=== PATIENT | female | born 1950 | race Caucasian/White ===

== ENCOUNTER 2021-01-27 05:54 | Outpatient (RCR) | payer MEDICARE, OTHER ==
[~2021-01-27] VITALS: Ht 160 cm; Wt 77.3 kg
[2021-01-27] MEDS ORDERED: FAMO40TA72 PO (14:18)
[2021-01-27] MEDS ORDERED: CALC600T91 PO (14:18)
[2021-01-27] MEDS ORDERED: RT-ALBUINH IH (14:18)
[2021-01-27] MEDS ORDERED: ATOR40TA PO (14:18)
[2021-01-27] MEDS ORDERED: FLUT1BLS IH (14:18)
[2021-01-27] MEDS ORDERED: VITA-189 PO (14:18)
[2021-01-27] MEDS ORDERED: CETI10TA49 PO (14:18)
== END 2021-01-27 14:22 | disposition home or self-care (01) ==
LOC: PREOP 05:54 → EDSTATUS 13:30 → PREOP 14:22
PROVIDERS: ATTEND Podiatrist Foot & Ankle Surgery
DX: Z01.818 Encounter for other preprocedural examination (principal)

== ENCOUNTER 2021-02-02 07:35 | Day surgery (SDC) | payer MEDICARE, OTHER ==
[2021-02-02] VITALS (10 sets, daily range): BP systolic 137–164; BP diastolic 71–89
[~2021-02-02] VITALS: Ht 160 cm; Wt 77.3 kg
[~2021-02-02 07:35] MED LIST: ATOR40TA PO; CALC600T91 PO; CETI10TA49 PO; FAMO40TA72 PO; FLUT1BLS IH; RT-ALBUINH IH; VITA-189 PO
--- OUTSIDE RECORDS SUMMARY | 2021-02-02 07:39 | XMS REPORT ---
Author Author Yamila Garduno Organization [facility] Address [address] [place], [place] [id number] Care Team Providers Care Chemical Economist Name Role Phone eRhan Garduno PCP Rehan Garduno PreferredProvider Allergies and Adverse Reactions Name Reaction Notes NO KNOWN DRUG ALLERGIES Plan of Treatment Planned Activity Comments Planned Date Planned Time Plan/Goal CBC with Auto 01/01/2021 12:00 AM Comprehensive metabolic panel 01/01/2021 12:00 AM Lipid Profile 01/01/2021 12:00 AM EKG. 01/01/2021 12:00 AM Medications Active Name Start Date Estimated Completion Date SIG Co mments Pepcid 40 mg oral tablet 01/24/2020 take 1 tablet (40 mg) by oral route once daily at bedtime Atorvastatin Calcium 40 MG Oral Tablet 03/03/2020 05/27/2021 Take 1 tablet by mouth once daily Zyrtec 10 mg oral tablet 07/30/2020 take 1 tablet (10 mg) by oral route once daily albuterol sulfate 90 mcg/actuation inhalation HFA aerosol inhale r 09/01/2020 inhale 1 - 2 puffs (90 - 180 mcg) by inhalation route every 6 hours as needed Breo Ellipta 200-25 mcg/dose inhalation blister with device 09/01 inhale 1 puff by inhalation route once daily at the same time each day Name Start Date Expiration Date SIG Comments Prometrium 100 mg oral capsule 06/30/2009 08/24/2010 t martin 1 capsule by oral route QD Prometrium 100 mg oral capsule 11/11/2011 12/11/2011 T MARTIN ONE CAPSULE BY MOUTH EVERY DAY albuterol sulfate 90 mcg/actuation inhalation HFA aerosol in haler 12/15/2012 12/29/2012 inhale 2 puffs by inhalation route every 6 hours as ne eded for 14 days amoxicillin 875 mg oral tablet 12/15/2012 12/22/2012 t martin 1 tablet (875 mg) by oral route every 12 hours for 7 days promethazine-codeine 6.25-10 mg/5 mL oral syrup 12/05/2013 12/12/2013 take 5 milliliters by oral route every 6 hours as needed, not to exceed 30 mL in 24 hours for 7 days Zithromax Z-Tony 250 mg oral tablet 12/11/2013 12/18/2013 as dir ected Bystolic 5 mg oral tablet 03/26/2014 06/19/2015 take 1 tablet (5 mg) by oral route once daily for 90 days Claritin 10 mg oral tablet 03/03/2018 07/01/2018 take 1 tablet by oral route 2 times a day for 30 days Macrobid 100 mg oral capsule 12/01/2019 12/08/2019 jacqueline e 1 capsule (100 mg) by oral route every 12 hours with food for 7 days Pyridium 200 mg oral tablet 12/01/2019 12/03/2019 take 1 tablet (200 mg) by oral route 3 times per day after meals for 2 days as needed Tessalon Perles 100 mg oral capsule 01/24/2020 take 2 capsules (200 mg) by oral route 3 times per day Symbicort 160-4.5 mcg/actuation inhalation HFA aerosol inhal er 02/06/2020 01/31/2021 inhale 2 puffs by inhalation route 2 daron es per day in the morning and evening for 30 days Carafate oral tablet 1 gram 10/14/2020 11/13/2020 take 1 tablet (1 gram) by oral route 2 times per day on an empty stomach for 30 days azithromycin oral tablet 500 mg 10/14/2020 10/19/2020 take 1 tablet (500 mg) by oral route once daily for 5 days Discontinued Name Start Date Discontinued Date SIG Comments Premarin 06/11/2009 dose unknown by pt Premarin vaginal cream 10/26/2010 using 5 to 7 days weekly Flexeril 10 mg oral tablet 04/06/2010 10/26/2010 take 1 tablet (10 mg) by oral route 2 times per day Estrace 0.01 % (0.1 mg/gram) vaginal cream 04/08/201104/06 apply 1 applicatorful by vaginal route twice a week Lanoxin 125 mcg oral tablet 03/07/2017 take 1 tablet (125 mcg) by oral route once daily Replaced/Retired Drug 400 mg oral tablet 08/19/19 18 take 1 tablet by oral route daily Medrol (Tony) 4 mg oral tablets,dose pack 03/07/2017 take as directed atorvastatin 40 mg oral tablet 04/28/2015 TAKE ONE T ABLET BY MOUTH ONCE DAILY atorvastatin 40 mg oral tablet 08/17/2016 03/07/2017 T MARTIN ONE TABLET BY MOUTH ONCE DAILY Claritin 10 mg oral tablet 08/18/2017 take 1 tablet (10 mg) by oral route once daily Premarin 0.625 mg/gram vaginal cream 03/07/2017 08/18/2017 insert one-fourth applicatorful (0.5 gram) by vaginal route twice weekly baclofen 10 mg oral tablet 04/13/2017 08/18/2017 take 1 tablet by oral route 2 times a day fluticasone 50 mcg/actuation nasal spray,suspension 08/18/2017 03/03/2018 spray 1 spray (50 mcg) in each nostril by intranasal route once daily Medrol (Tony) 4 mg oral tablets,dose pack 09/02/2017 03/03/2018 take as directed prednisolone acetate 1 % ophthalmic (eye) drops,suspension 201703/03/2018 instill 2 drops into affected eye(s) by ophthalmic route 2 times per day Zantac 150 mg oral tablet 03/03/2018 01/29/2019 take 1 tablet (150 mg) by oral route 2 times per day for 30 days ranitidine HCl 150 mg oral tablet 07/07/2018 02/19/2019 TAKE 1 TABLET BY MOUTH TWICE DAILY Concerned with it being linked to cancer atorvastatin 40 mg oral tablet 01/29/2019 04/24/2020 T MARTIN 1 TABLET BY MOUTH ONCE DAILY fluticasone propionate 50 mcg/actuation nasal spray,suspension 12/01/2019 spray 1 spray (50 mcg) in each nostril by intranasal route once daily Protonix 40 mg oral tablet,delayed release (DR/EC) 12/01/2019 take 1 tablet (40 mg) by oral route once daily for 8 weeks pantoprazole 40 mg oral tablet,delayed release (DR/EC) 04/23/2019 12/01/2019 TAKE 1 TABLET BY MOUTH ONCE DAILY Problem List Description Status Onset Hyperlipidemia, unspecified Active 08/27/2011 Vital Signs Date Time BP-Sys(mm[Hg] BP-Haydee(mm[Hg]) HR(bpm) RR(rpm) Temp WT HT HC BMI BSA BMI Percentile O2 Sat(%) 01/01/2021 8:36:00 AM 138 mm[Hg] 76 mm[Hg] 56 {beats}/min 18 rpm 97.5 F 174.375 lbs 63 in 30.8888 kg/m2 1.875 m2 98 % 10/14/2020 11:19:00 AM 130 mm[Hg] 80 mm[Hg] 72 {beats}/min 18 rpm 97.7 F 174.125 lbs 63 in 30.84 kg/m2 1.87 m2 98 % 09/01/2020 8:56:00 AM 152 mm[Hg] 86 mm[Hg] 72 {beats}/min 18 rpm 18 0 lbs 63 in 31.8852 kg/m2 1.905 m2 98 % 05/19/2020 7:51:00 PM 67 {beats}/min 18 rpm 98.4 F 96 % 04/24/2020 9:11:00 AM 132 mm[Hg] 74 mm[Hg] 88 {beats}/min 98.1 F 17 0 lbs 63 in 30.1138 kg/m2 1.8514 m2 99 % 02/28/2020 2:45:00 PM 126 mm[Hg] 80 mm[Hg] 53 {beats}/min 16 rpm 17 4 lbs 63 in 30.82 kg/m2 1.87 m2 98 % 01/24/2020 3:53:00 PM 140 mm[Hg] 60 mm[Hg] 74 {beats}/min 16 rpm 96.6 F 98 % 12/01/2019 9:26:00 AM 132 mm[Hg] 70 mm[Hg] 64 {beats}/min 18 rpm 97.9 F 168.125 lbs 63 in 29.7817 kg/m2 1.8411 m2 97 % 03/06/2019 2:27:00 PM 118 mm[Hg] 70 mm[Hg] 67 {beats}/min 18 rpm 97.8 F 171.375 lbs 63 in 30.36 kg/m2 1.86 m2 97 % 02/19/2019 8:46:00 AM 120 mm[Hg] 72 mm[Hg] 59 {beats}/min 22 rpm 97.6 F 170.187 lbs 63 in 30.1471 kg/m2 1.8524 m2 98 % 01/29/2019 3:25:00 PM 130 mm[Hg] 80 mm[Hg] 71 {beats}/min 18 rpm 97.9 F 170.75 lbs 63 in 30.25 kg/m2 1.86 m2 95 % 03/03/2018 8:47:00 AM 118 mm[Hg] 72 mm[Hg] 55 {beats}/min 18 rpm 97.8 F 164.125 lbs 63 in 29.0731 kg/m2 1.8191 m2 98 % 09/02/2017 9:41:00 AM 120 mm[Hg] 68 mm[Hg] 61 {beats}/min 18 rpm 98.1 F 162 lbs 63 in 28.70 kg/m2 1.81 m2 98 % 08/18/2017 3:33:00 PM 124 mm[Hg] 80 mm[Hg] 52 {beats}/min 16 rpm 97.3 F 164 lbs 63 in 29.051 kg/m2 1.8184 m2 99 % 04/13/2017 2:18:00 PM 130 mm[Hg] 80 mm[Hg] 66 {beats}/min 16 rpm 97.1 F 161 lbs 63 in 28.52 kg/m2 1.80 m2 99 % 03/07/2017 9:45:00 AM 132 mm[Hg] 72 mm[Hg] 64 {beats}/min 98 F 1 61 lbs 63 in 28.5196 kg/m2 1.8017 m2 12/12/2014 5:15:00 PM 140 mm[Hg] 72 mm[Hg] 43 {beats}/min 16 rpm 97.6 F 63 in 98 % 03/26/2014 8:33:00 AM 128 mm[Hg] 78 mm[Hg] 48 {beats}/min 18 rpm 98.1 F 154.5 lbs 63 in 27.3682 kg/m2 1.765 m2 98 % 12/15/2012 6:44:00 PM 142 mm[Hg] 82 mm[Hg] 88 {beats}/min 20 rpm 100.8 F 148 lbs 63 in 26.22 kg/m2 1.73 m2 99 % 11/08/2012 2:31:00 PM 139 mm[Hg] 75 mm[Hg] 61 {beats}/min 98 F 10/23/2012 3:28:00 PM 144 mm[Hg] 75 mm[Hg] 61 {beats}/min 98 F 146.5 lbs 62.5 in 26.3679 kg/m2 1.7118 m2 04/06/2012 2:41:00 PM 143 mm[Hg] 75 mm[Hg] 67 {beats}/min 98.2 F 167.5 lbs 62.5 in 30.15 kg/m2 1.83 m2 08/27/2011 8:52:00 AM 130 mm[Hg] 80 mm[Hg] 60 {beats}/min 20 rpm 97.8 F 171 lbs 10/26/2010 11:28:00 AM 129 mm[Hg] 80 mm[Hg] 55 {beats}/min 98.6 F 173 lbs 62.5 in 31.1375 kg/m2 1.8602 m2 04/06/2010 10:09:00 AM 144 mm[Hg] 88 mm[Hg] 60 {beats}/min 20 rpm 100 F 169 lbs 06/27/2009 10:02:00 AM 132 mm[Hg] 75 mm[Hg] 51 {beats}/min 06/12/2009 8:28:00 AM 130 mm[Hg] 82 mm[Hg] 64 {beats}/min 20 rpm 06/11/2009 9:56:00 AM 145 mm[Hg] 75 mm[Hg] 60 {beats}/min 20 rpm 174. 5 lbs Social History Name Description Comments No Alcohol Use Tobacco Never smoker 12/01/2019 - History of Procedures Date Ordered Description Order Status 08/27/2011 12:00 AM COMPLETE CBC W/AUTO DIFF WBC Reviewed 08/27/2011 12:00 AM COMPREHEN METABOLIC PANEL Reviewed 08/27/2011 12:00 AM LIPID PANEL Reviewed 08/27/2011 12:00 AM ASSAY THYROID STIM HORMONE Reviewed 08/27/2011 12:00 AM VITAMIN B-12 Reviewed 10/12/2016 12:00 AM TDAP VACCINE 7 YRS/> IM Reviewed 03/07/2017 12:00 AM Screening mammography, bilateral Reviewe d 03/07/2017 12:00 AM CYTOPATH C/V THIN LAYER Reviewed 03/07/2017 12:00 AM Screening mammography, bilateral Reviewe d 05/19/2012 12:00 AM MAMMOGRAM SCREENING Reviewed 04/06/2012 12:00 AM CYTOPATH TBS C/V MANUAL Reviewed 04/06/2012 12:00 AM SPECIMEN HANDLING OFFICE-LAB Reviewed 10/23/2012 12:00 AM ECHO EXAMINATION PROCEDURE Reviewed 10/23/2012 12:00 AM US EXAM PELVIC COMPLETE Reviewed 11/08/2012 12:00 AM BIOPSY OF UTERUS LINING Reviewed 03/03/2018 12:00 AM FLU VAC NO PRSV 4 BENY 3 YRS+ Reviewed 03/03/2018 12:00 AM PNEUMOCOCCAL VACC 13 BENY IM Reviewed 01/29/2019 12:00 AM Decadron 8mg Injection Reviewed 01/29/2019 12:00 AM Depo-Medrol 80mg Injection Reviewed 01/29/2019 12:00 AM THER/PROPH/DIAG INJ SC/IM Reviewed 01/29/2019 12:00 AM Rocephin 1 gram Injection Reviewed 02/19/2019 12:00 AM BREATHING CAPACITY TEST Returned 02/26/2019 12:00 AM METABOLIC PANEL TOTAL CA Returned 02/19/2019 12:[address] THORAX W/DYE Returned 03/06/2019 12:00 AM IM ADM PRQ ID SUBQ/IM NJXS 1 VACCINE Rev iewed 03/06/2019 12:00 AM PNEUMOCOCCAL VACC 23 BENY IM Reviewed 12/01/2019 9:41 AM URINALYSIS AUTO W/O SCOPE Reviewed 12/01/2019 12:00 AM URINE BACTERIA CULTURE Returned 12/22/2009 12:00 AM COMPLETE CBC W/AUTO DIFF WBC Reviewed 12/22/2009 12:00 AM COMPREHEN METABOLIC PANEL Reviewed 12/22/2009 12:00 AM LIPID PANEL Reviewed 05/19/2020 12:00 AM COVID-19 Testing Reviewed 10/14/2020 12:00 AM Decadron 4mg Injection Reviewed 10/14/2020 12:00 AM Depo-Medrol 40mg Injection Reviewed 10/14/2020 12:00 AM THER/PROPH/DIAG INJ SC/IM Reviewed 04/06/2010 12:00 AM URINALYSIS NONAUTO W/SCOPE Reviewed 04/15/2010 12:00 AM ROUTINE VENIPUNCTURE Reviewed 04/15/2010 12:00 AM LIPID PANEL Reviewed 06/11/2009 12:00 AM ASSAY THYROID STIM HORMONE Reviewed 06/11/2009 12:00 AM CYTOPATH C/V THIN LAYER Reviewed 06/11/2009 12:00 AM DXA BONE DENSITY AXIAL Reviewed 06/11/2009 12:00 AM MAMMOGRAM SCREENING Reviewed 06/11/2009 12:00 AM US EXAM PELVIC COMPLETE Reviewed 06/13/2009 12:00 AM BIOPSY OF UTERUS LINING Reviewed 10/26/2010 12:00 AM CYTOPATH TBS C/V MANUAL Reviewed 10/26/2010 12:00 AM SPECIMEN HANDLING OFFICE-LAB Reviewed 10/26/2010 12:00 AM MAMMOGRAM SCREENING Reviewed 12/12/2014 12:00 AM THER/PROPH/DIAG INJ SC/IM Reviewed 12/12/2014 12:00 AM Decadron, Per 1 Mg [facility]# [address]-03 Re viewed 12/12/2014 12:00 AM Depo-Medrol 40mg Reviewed Results Summary Date and Description Results 12/22/2009 10:08 AM TRIGLYCERIDES 156.0 mg/dLCHO LESTEROL 288.0 mg/dLHDL 47.0 mg/dLTOT CHOL/HDL 6.1 LDL (CALC) 210.0 mg/dLWBC 5.5 RBC 4.61 HGB 14.70 g/dLHCT 42.60 %MCV 92.0 fLMCH 31.90 pgMCHC 34.50 g/dLRDW SD 45 RDW CV 13.30 %MPV 9.90 fLPLT 196 NRBC# 0.00 NRBC% 0.0 %NEUT 55.0 %%LYMP 37.70 %%MONO 6.0 %%EOS 1.10 %%BASO 0.20 %#NEUT 3.02 #LYMP 2.07 #MONO 0.33 #EOS 0.06 #BASO 0.01 MANUAL DIFF NOT IND GLUCOSE 97.0 mg/dLSODIUM 140.0 mmol/LPOTASSIUM 4.50 mmol/LCHLORIDE 106.0 mmol/LCO2 27.0 mmol/LBUN 16.0 mg/dLCREATININE 1.0 mg/dLSGOT/AST 19.0 IU/LSGPT/ALT 17.0 IU/LALK PHOS 77.0 IU/LTOTAL PROTEIN 6.50 g/dLALBUMIN 4.10 g/dLTOTAL BILI 0.70 mg/dLCALCIUM 9.20 mg/dLAGE 59 GFR NonAA 57 GFR AA 69 eGFR 57 eGFR AA* >60 04/06/2010 11:23 AM COLOR YELLOW APPEARANCE KAYKAY R SPEC GRAV <=1.005 pH 7.0 PROTEIN NEGATIVE GLUCOSE NEGATIVE KETONE NEGATIVE BILIRUBIN NEGATIVE BLOOD NEGATIVE NITRITE NEGATIVE LEUK SCREEN NEGATIVE WBC/HPF RARE RBC/HPF RARE CASTS/LPF NEGATIVE CRYSTALS NEGATIVE MUCOUS THRDS NEGATIVE BACTERIA NEGATIVE EPITH CELLS FEW SQUAMOUS TRICHOMONAS NEGATIVE YEAST NEGATIVE CULT SET UP? NO 04/15/2010 11:32 AM TRIGLYCERIDES 66.0 mg/dLCHOL ESTEROL 137.0 mg/dLHDL 48.0 mg/dLTOT CHOL/HDL 2.9 LDL (CALC) 76.0 mg/dL 12/01/2019 9:41 AM Clarity Ur clear Urine-Color lt yellow Glucose Ur-sCnc neg Bilirub Ur Ql neg Ketones Ur Ql Strip neg Sp Gr Ur Qn <=1.005 Hgb Ur Ql Strip Large pH Ur-LsCnc 7.5 Prot Ur Ql Strip neg Urobilinogen Ur-mCnc 0.2 E.U/dL Nitrite Ur Ql Strip neg WBC # Ur Small 05/19/2020 2:19 PM [id number] NOT DETECTED History Of Immunizations Name Date Admin Mfg Name Mfg Code Trade Name Lot# Route Inj Vis Given Vis Pub CVX Tdap 10/12/2016 GlaxoSmithPeer39ine SKB BOOSTRIX [id number] Intramuscular Left Deltoid 10/12/2016 07/16/2014 115 Influenza 03/03/2018 sanofi pasteur PMC FLUZONE-HIGH DOSE [id number] In tramuscular Left Deltoid 03/03/2018 05/23/2021 135 Pneumococcal 03/03/2018 Yrvey-Kbpwjq-Zrigafj-Praxis WAL PREVNAR 13 [id number] Intramuscular Right Deltoid 03/03/2018 05/23/2021 133 Pneumococcal 03/06/2019 Merck & Co., Inc. MSD PNEUMOVAX 23 [id number] Intramuscular Left Deltoid 03/06/2019 05/23/2021 33 Covid-19 08/06/2020 Moderna [employer] MOD Moderna COVID-19 Vaccin e [id number] Intramuscular Left Arm 08/06/2020 04/22/2020 207 History of Past Illness Name Date of Onset Comments Pap Smear Jun 11 2009 9:57AM Routine gynecological examination Jun 11 2009 9:57AM Atrophic Vaginitis, Postmenopausal Jun 11 2009 9:57AM Hormone Replacement Therapy Jun 11 2009 9:57AM Menopausal Syndrome Jun 11 2009 9:57AM Postmenopausal Atrophic Vaginitis Jun 11 2009 9:57AM Uteromegaly Jun 11 2009 9:57AM Gynecological Exam Jun 11 2009 9:57AM Gynecological disorder Jun 11 2009 9:57AM Other personal history presenting hazard s to health; other specified personal history presenting hazards to health; other Jun 11 2009 4:58PM Postmenopausal Bleeding Jun 12 2009 8:24AM Postmenopausal Bleeding Jun 15 2009 11:36PM Preoperative Examination Jun 15 2009 11:36PM Hypercholesterolemia on rx Postmenopausal Atrophic Vaginitis Jun 27 2009 10:02AM Postmenopausal Bleeding Jun 27 2009 10:02AM Hyperlipidemia, unspecified 08/27/2011 General Medical Exam, Adult Dec 22 2009 9:50AM Low Back Pain Apr 06 2010 10:11AM Fever Apr 06 2010 10:11AM Hyperlipidemia Apr 15 2010 11:23AM Routine gynecological examination Oct 26 2010 11:32AM Menopausal Syndrome Oct 26 2010 11:32AM Inappropriate sinus tachycardia Hyperlipidemia, unspecified Aug 27 2011 8:55AM Fatigue Aug 27 2011 8:55AM Dizziness Aug 27 2011 8:55AM Screening Mammogram Apr 06 2012 2:47PM Routine gynecological examination Apr 06 2012 2:43PM Menopausal Syndrome Apr 06 2012 2:43PM Postmenopausal Bleeding Oct 23 2012 3:30PM Urgency of urination Oct 23 2012 3:30PM Postmenopausal Bleeding Oct 23 2012 3:47PM Postmenopausal Bleeding Nov 08 2012 2:31PM Postmenopausal Bleeding Nov 08 2012 4:11PM Bronchitis Dec 15 2012 6:48PM Hyperlipidemia, unspecified Mar 26 2014 8:39AM Poison kayode Dec 12 2014 5:18PM Eustachian tube dysfunction, bilateral Dec 12 2014 5:18PM Td Oct 12 2016 3:09PM Encounter for screening mammogram for breast cancer Feb 23 11:18AM Encntr for hourly sign language interpreter exam (general) (routine) w abnormal findings Mar 07 2017 9:47AM Atrophic vaginitis Mar 07 2017 9:47AM Acute midline thoracic back pain Apr 13 2017 2:19PM Acute midline low back pain without sciatica Apr 13 2017 2: 19PM Allergic rhinitis Aug 18 2017 3:34PM Acute conjunctivitis of right eye, unspecified acute c onjunctivitis type Sep 02 2017 9:44AM Seasonal allergic rhinitis due to pollen Sep 02 2017 9:44AM Cough Mar 03 2018 8:50AM Sinusitis Jan 29 2019 3:27PM Cough Jan 29 2019 3:27PM Dyspnea Feb 19 2019 8:50AM Cough Feb 19 2019 8:50AM Cough Feb 19 2019 3:39PM Dyspnea Feb 19 2019 3:39PM Blood tests prior to treatment or procedure Feb 26 2019 2:1 7PM Pneumococcus Mar 07 2019 7:33AM Esophageal Reflux Mar 06 2019 2:27PM Cough Mar 06 2019 2:27PM Hematuria Dec 01 2019 9:28AM Acute cystitis with hematuria Dec 01 2019 9:28AM Cough Jan 24 2020 3:57PM Encounter for laboratory testing for COVID-19 virus May 19 020 12:52PM Cough May 19 2020 12:52PM Congestion of respiratory tract May 19 2020 12:52PM Runny nose May 19 2020 12:52PM Chronic cough Sep 01 2020 9:24AM Allergic rhinitis Sep 01 2020 9:24AM Reflux esophagitis Oct 14 2020 11:20AM Preop examination Jan 01 2021 8:57AM Hyperlipidemia, unspecified Jan 01 2021 8:39AM Bunion of great toe of left foot Jan 01 2021 8:39AM Payers Insurance Name Company Name Plan Name Plan Number Policy Number [place] Group Number Start Date Medicare Part B Medicare Of [place] [id number] N/A Cigna Medicare Supplement Cigna [id number] N/A [id number] N/ A Medicare RHC Medicare RHC [id number] 2019 Medicare Part A Medicare - Lab/Xray [id number] Wednesday, February 20, 2019 History of Encounters Visit Date Visit Type Provider 01/01/2021 Office visit Rehan Garduno MD 10/14/2020 Office visit Tracy Ji APR N 09/01/[address] Cruz Mandel DO 05/19/2020 Office visit Alicia CALVIN RN 04/24/[address] Cruz Mandel DO 02/28/[address] Cruz Mandel DO 01/24/[address] Cruz Mandel DO 12/01/2019 Office visit Alicia CALVIN RN 03/06/2019 Office visit Rehan Garduno MD 02/19/2019 Office visit Rehan Garduno MD 01/29/2019 Office visit Rehan Garduno MD 03/03/2018 Office visit Rehan Garduno MD 09/02/2017 Office visit Hanna Cifuentes [employer]CHOOL TUTOR 08/18/2017 Office visit Rehan Garduno MD 04/13/2017 Office visit Kevyn Jordan APR N 03/07/[address] Gricelda read MD 10/12/2016 Nurse visit Hanna Cifuentes [employer] TUTOR 12/12/2014 Office visit Kevyn Jordan APR N 03/26/2014 Office visit Rehan Garduno MD 12/15/2012 Office visit Buck Tristan PA-C 11/08/2012 Office visit Bernardino Mandel MD 10/23/2012 Office visit Bernardino Mandel MD 04/06/2012 Office visit Bernardino Mandel MD 08/27/2011 Office visit Rehan Garduno MD 10/26/2010 Office visit Bernardino Mandel MD 04/06/2010 Office visit Rehan Garduno MD 06/27/2009 Office visit Sharon Paul MD 06/17/2009 [facility] Sharon Paul MD 06/16/2009 Laboratory Larry Velazquez MD 06/12/2009 Office visit Sharon Paul MD 06/11/2009 Office visit Sharon Paul MD
--- OUTSIDE RECORDS SUMMARY | 2021-02-02 07:39 | XMS REPORT ---
Author Author Yamila Garduno Organization [facility] Address [address] [place], [place] [id number] Care Team Providers Care Line Prep Cook Name Role Phone Rehan Garduno PCP Rehan Garduno PreferredProvider Allergies and Adverse Reactions Name Reaction Notes NO KNOWN DRUG ALLERGIES Plan of Treatment Planned Activity Comments Planned Date Planned Time Plan/Goal EKG. 01/01/2021 12:00 AM Medications Active Name [...] daily at the same time each day Calcium 500 With D 500 mg(1,250mg) -400 unit oral tablet take 1 tablet by oral route once Name Start Date Expiration Date SIG Comments [...] TAKE 1 TABLET BY MOUTH ONCE DAILY Vitamin D3 oral 01/23/2021 take 1 by oral route onc e Problem List Description Status Onset Hyperlipidemia, unspecified Active 08/27/2011 Vital Signs Date Time BP-Sys(mm[Hg] BP-Haydee(mm[Hg]) HR(bpm) RR(rpm) Temp WT HT HC BMI BSA BMI Percentile O2 Sat(%) 01/23/2021 9:30:00 AM 114 mm[Hg] 70 mm[Hg] 62 {beats}/min 18 rpm 97.7 F 172.5 lbs 63 in 30.5567 kg/m2 1.8649 m2 97 % 01/01/2021 8:36:00 AM 138 mm[Hg] 76 mm[Hg] 56 {beats}/min 18 rpm 97.5 F 174.375 lbs 63 in 30.89 kg/m2 1.88 m2 98 % 10/14/2020 11:19:00 AM 130 mm[Hg] 80 mm[Hg] 72 {beats}/min 18 rpm 97.7 F 174.125 lbs 63 in 30.8445 kg/m2 1.8737 m2 98 % 09/01/2020 8:56:00 AM 152 mm[Hg] 86 mm[Hg] 72 {beats}/min 18 rpm 18 0 lbs 63 in 31.89 kg/m2 1.91 m2 98 % 05/19/2020 7:51:00 PM 67 [...] 10/14/2020 12:00 AM THER/PROPH/DIAG INJ SC/IM Reviewed 01/01/2021 12:00 AM COMPLETE CBC W/AUTO DIFF WBC Returned 01/01/2021 12:00 AM COMPREHEN METABOLIC PANEL Returned 01/01/2021 12:00 AM LIPID PANEL Returned 04/06/2010 12:00 AM URINALYSIS NONAUTO W/SCOPE Reviewed [...] 12/12/2014 12:00 AM Decadron, Per 1 Mg [facility]# [id number] Re viewed 12/12/2014 12:00 AM Depo-Medrol 40mg [...] WBC # Ur Small 05/19/2020 2:19 PM [id number] NOT DETECTED History Of Immunizations Name Date Admin Mfg Name Mfg Code Trade Name Lot# Route Inj Vis Given Vis Pub CVX Tdap 10/12/2016 GlaxoSmithKline SKB BOOSTRIX [id number] Intramuscular Left Deltoid 10/12/2016 07/16/2014 115 Influenza 03/03/2018 sanofi pasteur PMC FLUZONE-HIGH DOSE [id number] In tramuscular Left Deltoid 03/03/2018 05/23/2021 135 Pneumococcal 03/03/2018 Pwkhw-Mrwgzt-Wgxjhlj-Praxis WAL PREVNAR 13 [id number] Intramuscular Right Deltoid 03/03/2018 05/23/2021 133 Pneumococcal 03/06/2019 Merck & Co., Inc. MSD PNEUMOVAX 23 [id number] Intramuscular Left Deltoid 03/06/2019 05/23/2021 33 Covid-19 08/06/2020 Moderna [employer]. MOD Moderna COVID-19 Vaccin e [id number] Intramuscular Left Arm 08/06/2020 04/22/2020 207 History [...] breast cancer Feb 23 11:18AM Encntr for control inspector exam (general) (routine) w abnormal findings Mar [...] laboratory testing for COVID-19 virus May 19 12:52PM Cough May 19 2020 12:52PM Congestion of respiratory tract May 19 2020 12:52PM Runny nose May 19 2020 12:52PM Chronic cough Sep 01 2020 9:24AM Allergic rhinitis Sep 01 2020 9:24AM Reflux esophagitis Oct 14 2020 11:20AM Preop examination Jan 01 2021 8:57AM Hyperlipidemia, unspecified Jan 01 2021 8:39AM Bunion of great toe of left foot Jan 01 2021 8:39AM Hyperlipemia Jan 01 2021 8:57AM Bunion of great toe of left foot Jan 23 2021 9:28AM Preop examination Jan 23 2021 9:28AM Payers Insurance Name Company Name Plan Name Plan Number Policy Number [place] Group Number Start Date Medicare [facility] Medicare [facility] [id number] 2019 Cigna Medicare Supplement Cigna [id number] N/A Medicare Part B Medicare Of [place] [id number] N/A Medicare Part A Medicare - Lab/Xray [id number] Wednesday, February 20, 2019 BCBS [facility] [id number] N/ A History of Encounters Visit Date Visit Type Provider 01/23/2021 Office visit Rehan Garduno MD 01/01/2021 Office visit Rehan Garduno MD 10/14/2020 [...] Garduno MD 09/02/2017 Office visit Hanna Cifuentes CIRCULAR [employer]W [employer]GE FUSER 08/18/2017 Office visit Rehan Garduno MD 04/13/2017 Office visit Kevyn Jordan APR N 03/07/[address] Gricelda read MD 10/12/2016 Nurse visit Hanna Cifuentes CIRCULAR SAW EDGE FUSER 12/12/2014 Office visit Kevyn Jordan APR N 03/26/2014 Office visit Rehan Garduno MD 12/15/2012 Office visit Buck Tristan PA-C 11/08/2012 Office visit Bernardino Mandel MD 10/23/2012 Office visit Bernardino Mandel MD 04/06/2012 Office visit Bernardino Mandel MD 08/27/2011 Office visit Rehan Garduno MD 10/26/2010 Office visit Bernardino Mandel MD 04/06/2010 Office visit Rehan Garduno MD 06/27/2009 Office visit Sharon Paul MD 06/17/2009 Hospital Sharon Paul MD 06/16/2009 Laboratory Larry Velazquez MD 06/12/2009 Office visit Sharon Paul MD 06/11/2009 Office visit Sharon Paul MD
--- OUTSIDE RECORDS SUMMARY | 2021-02-02 07:39 | XMS REPORT ---
Author Author Yamila Garduno Organization [facility] oup Address [address] [place], [place] [address] Care Team Providers Care Wrister Name Role Phone Rehan Garduno PCP Rehan [...] 12/12/2014 12:00 AM Decadron, Per 1 Mg [facility]# [address]-97 Re viewed 12/12/2014 12:00 AM Depo-Medrol 40mg [...] WBC # Ur Small 05/19/2020 2:19 PM [id number] NOT DETECTED History Of Immunizations Name Date Admin Mfg Name Mfg Code Trade Name Lot# Route Inj Vis Given Vis Pub CVX Tdap 10/12/2016 GlaxoSmithVikiine SKB BOOSTRIX [id number] Intramuscular Left Deltoid 10/12/2016 07/16/2014 115 Influenza 03/03/2018 sanofi pasteur PMC FLUZONE-HIGH DOSE [id number] In tramuscular Left Deltoid 03/03/2018 05/23/2021 135 Pneumococcal 03/03/2018 Nzzep-Qvgbxu-Rcofokh-Praxis WAL PREVNAR 13 [id number] Intramuscular Right Deltoid 03/03/2018 05/23/2021 133 Pneumococcal 03/06/2019 Merck & Co., Inc. MSD PNEUMOVAX 23 [id number] Intramuscular Left Deltoid 03/06/2019 05/23/2021 33 Covid-19 08/06/2020 Moderna SMTDP [employer], Inc. 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 Mar [...] 2021 8:39AM Hyperlipemia Jan 01 2021 8:57AM Payers Insurance Name Company Name Plan Name Plan Number Policy Number [place] Group Number Start Date Medicare Part B Medicare Of [place] [id number] N/A Cigna Medicare Supplement Cigna [id number] N/A BCBS [facility] [id number] N/ A Medicare RHC Medicare RHC [id number] 2019 Medicare Part A Medicare - Lab/Xray [id number] Wednesday, February 20, 2019 History of Encounters [...] Garduno MD 09/02/2017 Office visit Hanna Cifuentes APRN 08/18/2017 Office visit Rehan Garduno MD 04/13/2017 Office visit Kevyn Jordan APR N 03/07/[address] Gricelda read MD 10/12/2016 Nurse visit Hanna Cifuentes DRYING MACHINE BACK TENDER 12/12/2014 Office visit Kevyn Jordan APR N 03/26/2014 Office visit Rehan Garduno MD 12/15/2012 Office visit Buck MAHANC 11/08/2012 Office visit Bernardino Mandel MD 10/23/2012 Office visit Bernardino Mandel MD 04/06/2012 Office visit Bernardino Mandel MD 08/27/2011 Office visit Rehan Garduno MD 10/26/2010 Office visit Bernardino Mandel MD 04/06/2010 Office visit Rehan Garduno MD 06/27/2009 Office visit Sharon Paul MD 06/17/2009 [facility] Sharon Paul MD 06/16/2009 Laboratory Larry Velazquez MD 06/12/2009 Office visit Sharon Paul MD 06/11/2009 Office visit Sharon Paul MD
--- OUTSIDE RECORDS SUMMARY | 2021-02-02 07:39 | XMS REPORT ---
Author Author Yamila Garduno Organization [facility] Address [address] [place], [place] [id number] Care Team Providers Care Elevator Constructor Helper Name Role Phone Rehan Garduno PCP Rehan [...] Replaced/Retired Drug 400 mg oral tablet 08/19/19 take 1 tablet by oral route daily [...] 12/12/2014 12:00 AM Decadron, Per 1 Mg [facility]# [address]-80 Re viewed 12/12/2014 12:00 AM Depo-Medrol 40mg [...] WBC # Ur Small 05/19/2020 2:19 PM [id number] NOT DETECTED History Of Immunizations Name Date Admin Mfg Name Mfg Code Trade Name Lot# Route Inj Vis Given Vis Pub CVX Tdap 10/12/2016 GlaxoSmithKline SKB BOOSTRIX [id number] Intramuscular Left Deltoid 10/12/2016 07/16/2014 115 Influenza 03/03/2018 sanofi pasteur PMC FLUZONE-HIGH DOSE [id number] In tramuscular Left Deltoid 03/03/2018 05/23/2021 135 Pneumococcal 03/03/2018 Ererf-Zivczv-Glvesxm-Praxis WAL PREVNAR 13 [id number] Intramuscular Right Deltoid 03/03/2018 05/23/2021 133 Pneumococcal 03/06/2019 Merck & Co., Inc. MSD PNEUMOVAX 23 [id number] Intramuscular Left Deltoid 03/06/2019 05/23/2021 33 Covid-19 08/06/2020 Moderna [employer] Inc. 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 [id number] N/ A History of Encounters Visit Date [...] visit Rehan Garduno MD 04/13/2017 Office visit Kevny Jordan APR N 03/07/[address] Gricelda read MD 10/12/2016 Nurse visit Hanna Cifuentes ROCK WORKER 12/12/2014 Office visit Kevyn Jordan APR N 03/26/2014 Office visit Rehan Garduno MD 12/15/2012 Office visit Buck MAHANC 11/08/2012 Office visit Bernardino Mandel MD 10/23/2012 Office visit Bernardino Mandel MD 04/06/2012 Office visit Bernardino Mandel MD 08/27/2011 Office visit Rehan Garduno MD 10/26/2010 Office visit Bernardino Mandel MD 04/06/2010 Office visit Rehan Garduno MD 06/27/2009 Office visit Sharon Paul MD 06/17/2009 [facility] Sharon Paul MD 06/16/2009 Laboratory Larry Velazquez MD 06/12/2009 Office visit Sharon Paul MD 06/11/2009 Office visit Sharon Paul MD
--- OUTSIDE RECORDS SUMMARY | 2021-02-02 07:39 | XMS REPORT ---
Author Author Yamila Garduno Organization [facility] Address [address] [place], [place] [id number] Care Team Providers Care Clinical Systems Analyst Name Role Phone Rehan Garduno PCP Rehan [...] 12/12/2014 12:00 AM Decadron, Per 1 Mg [facility]# [id number] Re viewed 12/12/2014 12:00 AM Depo-Medrol 40mg [...] WBC # Ur Small 05/19/2020 2:19 PM [id number] NOT DETECTED History Of Immunizations Name Date Admin Mfg Name Mfg Code Trade Name Lot# Route Inj Vis Given Vis Pub CVX Tdap 10/12/2016 GlaxoSmithMangatarine SKB BOOSTRIX [id number] Intramuscular Left Deltoid 10/12/2016 07/16/2014 115 Influenza 03/03/2018 sanofi pasteur PMC FLUZONE-HIGH DOSE [id number] In tramuscular Left Deltoid 03/03/2018 05/23/2021 135 Pneumococcal 03/03/2018 Outpr-Rxhyif-Tparvss-Praxis WAL PREVNAR 13 [id number] Intramuscular Right Deltoid 03/03/2018 05/23/2021 133 Pneumococcal 03/06/2019 Merck & Co., Inc. MSD PNEUMOVAX 23 [id number] 38 Intramuscular Left Deltoid 03/06/2019 05/23/2021 33 Covid-19 08/06/2020 Moderna NovelMed Therapeutics, Inc. 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 Mar [...] 11:20AM Preop examination Jan 01 2021 8:57AM Payers Insurance Name Company Name Plan Name Plan Number Policy Number [place] Group Number Start Date Medicare Part B Medicare [place] [id number] N/A Cigna Medicare Supplement Cigna [id number] N/A [facility]BS [facility] [id number] N/ A Medicare RHC Medicare RHC [id number] 2019 Medicare Part A Medicare - Lab/Xray [id number] Wednesday, February 20, 2019 History of Encounters [...] Garduno MD 09/02/2017 Office visit Hanna Cifuentes GRIEF COUNSELOR 08/18/2017 Office visit Rehan Garduno MD 04/13/2017 Office visit Kevyn Jordan APR N 03/07/[address] Gricelda read MD 10/12/2016 Nurse visit Hanna Cifuentes GRIEF COUNSELOR 12/12/2014 Office visit Kevyn Jordan APR N [...]
--- OUTSIDE RECORDS SUMMARY | 2021-02-02 07:39 | XMS REPORT ---
Author Author Yamila Garduno Organization [facility] o[facility] Address [address] [place], [place] [address] Care Team Providers Care Machine Wedger Name Role Phone Rehan Garduno PCP Rehan [...] 12/12/2014 12:00 AM Decadron, Per 1 Mg [facility]# [id number] Re viewed 12/12/2014 12:00 AM Depo-Medrol 40mg [...] WBC # Ur Small 05/19/2020 2:19 PM [id number] NOT DETECTED History Of Immunizations Name Date Admin Mfg Name Mfg Code Trade Name Lot# Route Inj Vis Given Vis Pub CVX Tdap 10/12/2016 GlaxoSmithKline SKB BOOSTRIX [id number] Intramuscular Left Deltoid 10/12/2016 07/16/2014 115 Influenza 03/03/2018 sanofi pasteur PMC FLUZONE-HIGH DOSE [id number] In tramuscular Left Deltoid 03/03/2018 05/23/2021 135 Pneumococcal 03/03/2018 Ceyai-Ziikni-Evhbslk-Praxis WAL PREVNAR 13 [id number] Intramuscular Right Deltoid 03/03/2018 05/23/2021 133 Pneumococcal 03/06/2019 Merck & Co., Inc. MSD PNEUMOVAX 23 [id number] 38 Intramuscular Left Deltoid 03/06/2019 05/23/2021 33 Covid-19 08/06/2020 Moderna [employer] 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 Gricelda read MD 10/12/2016 Nurse visit Hanna Cifuentes DEMURRAGE AGENT 12/12/2014 Office visit Kevyn Jordan APR N [...]
[2021-02-02] MEDS ORDERED: ceFAZolin INJECTION 1,000 MG in WATER (STERILE) FOR INJECTION 10 ML IV ONE (08:00)
[2021-02-02] MEDS ORDERED: LACTATED RINGERS 1,000 ML IV PRN (08:00)
[2021-02-02] MEDS ORDERED: fentaNYL INJ 100 MCG/2 ML AMP ONE (08:13)
[2021-02-02] MEDS ORDERED: ONDANSETRON 4 MG/2 ML (SDV) Z0FRAN ONE (08:13)
[2021-02-02] MEDS ORDERED: proPOfol 200 MG/20 ML (DIPRIVAN) VIAL IV ONE (08:13)
[2021-02-02] MEDS ORDERED: MIDAZOLAM 2 MG/2 ML (VERSED) VIAL ONE (08:13)
[2021-02-02] MEDS ORDERED: SEVOFLURANE (ULTANE) 15 ML INHAL SOLN ONE ×2 (08:13→11:06)
[2021-02-02] MEDS ORDERED: LIDOCAINE PF 2% 5 ML (XYLOCAINE) VIAL ONE (08:13)
[2021-02-02] MEDS ORDERED: LIDOCAINE 1% INJ 20 ML 20 ML VIAL ONE (09:22)
[2021-02-02] MEDS ORDERED: BUPIVACAINE 0.5% 30 ML (SENSORCAINE) VIAL ONE (09:22)
--- NOTE | 2021-02-02 09:29 | Progress Note-Pre Operative ---
Pre-Operative Progress Note H&P Reviewed The H&P was reviewed, patient examined and no changes noted. Date Seen by Provider: Feb 02, 2021 Time Seen by Provider: : Date H&P Reviewed: Feb 02, 2021 Time H&P Reviewed: 09:29 Pre-Operative Diagnosis: Hallux Valgus, 2nd Hammertoe, left TAMMIE,JULIET Q DPM Feb 02, 2021 09:29
[2021-02-02] MEDS ORDERED: PHENYLEPHRINE 100 MCG/ML 10 ML (ANESTHESIA) SYR ONE (09:59)
[2021-02-02] MEDS ORDERED: GLYCOPYRROLATE 0.2 MG/ML (ROBINUL) 2 ML VIAL ONE (09:59)
[2021-02-02] MEDS ORDERED: PHENYLEPHRINE INJ 10 MG/ML (FOR DRIP KITS ONLY) ONE (10:30)
--- NOTE | 2021-02-02 11:29 | Progress Note-Post Operative ---
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
[2021-02-02] MEDS ORDERED: LACTATED RINGERS 1,000 ML IV SCH (11:30)
[2021-02-02] MEDS ORDERED: HYDROcodone/APAP 5 MG/325 MG (LORTAB) TAB PO PRN (11:30)
[2021-02-02] MEDS ORDERED: ACHD5005 PO (11:32)
[2021-02-02] MEDS ORDERED: CEPH500C PO (11:32)
--- NOTE | 2021-02-02 11:43 | Diagnostic Imaging Report ---
EXAMINATION: Left foot radiographs, 2 views. COMPARISON: None. HISTORY: 70-year-old female, postop. FINDINGS: There is a fixation pin traversing the second digit phalanges. There are postoperative changes of the distal aspect of the second proximal phalanx. There is a fixation pin at the level of the first metatarsal and probable osteotomy site. There are also postoperative changes of the first proximal phalanx with metallic wires at this level. There is no apparent procedural-related complication. IMPRESSION: 1. Postoperative changes of the first and second digits as above. 2. No identified complication. Dictated by: Dictated on workstation # [id number]
--- NOTE | 2021-02-02 13:58 | Anesthesia-General Post-Op ---
General Patient Condition Mental Status/LOC: Same as Preop Cardiovascular: Satisfactory Nausea/Vomiting: Absent Respiratory: Satisfactory Pain: Controlled Complications: Absent Post Op Complications Complications None Follow Up Care/Instructions Patient Instructions None needed. Anesthesia/Patient Condition Patient Condition Patient was seen after the procedure and she was doing well, no complaints, stable vital signs, no apparent adverse anesthesia problems. TAYLOR MADSEN DO Feb 02, 2021 13:58
--- NOTE | 2021-02-02 14:31 | Physical Therapy Ortho Eval ---
PT Orthopedic Evaluation Type of Surgery Prior Level of Function Current Living Status: Significant Other Locomotion (Upon Admit): Independent Established Durable Medical Eq: Front Wheeled Walker, Crutches Knee Scooter Subjective Subjective Patient reports 0/10 pain currently. Motor Control Motor Control: Motor Control WNL ROM ROM: WFL, except focal deficit Strength Strength: Gen Weak,No Focal Deficit Transfer SCALE: Activities may be completed with or without assistive devices. 4-Hdlkksdgey-welrefn completes the activity by him/herself with no assistance from a helper. 5-Set-up or Clean-up Assistance-helper sets up or cleans up; patient completes activity. Ingraham assists only prior to or following the activity. 4-Supervision or Touching Assistance-helper provides verbal cues and/or touching/steadying and/or contact guard assistance as patient completes activity. Assistance may be provided throughout the activity or intermittently. 3-Partial/Moderate Assistance-helper does LESS THAN HALF the effort. Ingraham lifts, holds or supports trunk or limbs, but provides less than half the effort. 2-Substantial/Maximal Assistance-helper does MORE THAN HALF the effort. Ingraham lifts or holds trunk or limbs and provides more than half the effort. 0-Bobowqgam-cyuuzp does ALL the effort. Patient does none of the effort to complete the activity. Or, the assistance of 2 or more helpers is required for the patient to complete the activity. If activity was not attempted, code reason: 7-Patient Refused. 9-Not Applicable-not attempted and the patient did not perform the activity before the current illness, exacerbation or injury. 10-Not Attempted due to Environmental Limitations-(lack of equipment, weather restraints, etc.). 88-Not Attempted due to Medical Conditions or Safety Concerns. Transfers (B, C, W/C) (QC): 5 Gait Gait Assistive Device: FWW Right Lower Extremity: Right Weight Bearing Status RLE: Full Weight Bearing Left Lower Extremity: Left Weight Bearing Status LLE: Non Weight Bearing Other Weight Bearing Inst.: Left heel contact for balance and transfers only Gait (QC): 4 Distance (QC): 1=up to 49 ft Distance: 20 Gait Level of Assist: 4 Summary/Comments Patient ascended/descended 1 step with FWW and with min A. Treatment Rendered Treatment: Gait Train Assessment/Goals Goal Time Frame: 1 Visit Safe Ambulation: Yes Plan Treatment Plan: Discharge Time Time In: 1340 Time Out: 1405 Total Billed Treatment Time: 25 Billed Treatment Time Visit, Adrianne Jay JOHN A PT Feb 02, 2021 14:31
--- NOTE | 2021-02-02 18:23 | OPERATIVE REPORT ---
DATE OF SERVICE: 02/02/2021 SURGEON: Juliet Cho DPM. PREOPERATIVE DIAGNOSES: 1. Hallux abductovalgus metatarsal primus varus, left. 2. Hammertoe, left second digit. POSTOPERATIVE DIAGNOSES: 1. Hallux abductovalgus metatarsal primus varus, left. 2. Hammertoe, left second digit. PROCEDURES PERFORMED: 1. Modified Alex-Kiel bunionectomy, left. 2. Reduction of hammertoe, left second digit. WOUND CLASS: Clean. ANESTHESIA: General. HEMOSTASIS: Pneumatic thigh tourniquet at 300 mmHg. INDICATIONS FOR PROCEDURE: This 70-year-old female presents complaining of painful bunion and hammertoe, left foot. Conservative therapy is met with unsatisfactory results and the patient is agreeable to surgical intervention after risks and complications were discussed at length. No guarantees were extended to the patient and she is willing to proceed. DESCRIPTION OF PROCEDURE: The patient was brought back to the operating table and placed in a secure supine position. General anesthetic was then induced. Appropriate timeout was performed. Pneumatic thigh tourniquet was placed on the left lower extremity over several layers of padding. The left foot was anesthetized with aseptic technique utilizing 10 mL of 0.5% Marcaine in a [place] block and in addition to the second ray, left foot. The left foot was then prepped and draped in a normal sterile manner. The left foot was then elevated and allowed to exsanguinate after which the tourniquet was inflated to 300 mmHg. Attention was then directed to the dorsal aspect of the left first metatarsophalangeal joint, where a 6 cm longitudinal linear incision was created. The incision was deepened in the same plane with great care to identify and retract all vital neurovascular structures. Only necessary blood vessels were cauterized as encountered. The incision was deepened down to the capsule, where a longitudinal capsulotomy was performed. Capsular tissue was reflected, demonstrating a hypertrophic medial eminence of the first metatarsal head, which was resected utilizing a power sagittal saw. Next, a blunt dissection was created to the first intermetatarsal space, where a lateral release was performed. The conjoint tendon of the adductor hallucis was identified and cut. The lateral capsulorrhaphy was also performed as well as release of the fibular sesamoidal ligament. Attention was redirected to the medial aspect of the first metatarsal, where a Chevron-type osteotomy was performed from medial to lateral allowing the capital fragment to translocate laterally and was fixated in its corrected position utilizing a 0.062 threaded K-wire driven from dorsal proximal to plantar distal with great care not to penetrate the articular cartilage. The K-wire was cut flush with the dorsal aspect of the first metatarsal. The head of the first metatarsal was further contoured and smoothed utilizing a power bur and a power sagittal saw. In the sagittal groove of the medial sesamoid, there was a full thickness degeneration of the articular cartilage noted at this time. There remained some lateral deviation to the hallux and it was decided that an Kiel osteotomy would also be appropriate at this time. Subperiosteal dissection was carried out to the diaphysis of the proximal phalanx. Next, utilizing a power sagittal saw, a wedge of bone was resected with the base medial and the lateral cortices held intact. Once the gap was closed and the wedge of bone resected, improved alignment was appreciated. Next, two pilot teacher holes were created at the dorsal medial aspect of the osteotomy allowing for a 28-gauge monofilament wire to pass through the pilot teacher hole securing the osteotomy in a closed position. Excellent bony apposition and fixation was noted. The wound was flushed with copious amounts of normal saline throughout the procedure. Deep closure was then performed with 3-0 Vicryl, superficial with 4-0 Vicryl and skin closed with 4-0 Prolene in a horizontal mattress type stitch. Attention was then directed to the dorsal aspect of the left second toe, where a 3 cm longitudinal linear incision was created from the metatarsophalangeal joint to the distal interphalangeal joint of the toe. The incision was deepened down to the extensor tendon where a Z slide lengthening was performed. The extensor tendon was reflected proximally and the extensor bo released. A dorsal capsulorrhaphy was also performed. Next, a dissection was carried out into the proximal phalanx, where a large medial eminence was identified to the head of the proximal phalanx. Also, full thickness degeneration of the articular cartilage was noted, most likely from a previous fracture to the toe. Next, utilizing a power sagittal saw and a power bur, the head of the proximal phalanx was shaped into a peg and a hole was created into the base of the middle phalanx utilizing a power bur for the peg-in-hole type arthrodesis. Next, a 0.054 K-wire was driven down the toe, securing the arthrodesis site in a rectus alignment. The wound was flushed with copious amounts of normal saline throughout the procedure. The excess K-wire at the end of the toe was cut and a protective ball placed over the end of the wire. Closure was then performed in layers, deep closure with 3-0 Vicryl, superficial with 4-0 Vicryl and skin closed with 4-0 Prolene in a horizontal mattress type stitch. Postoperative injection consisted of 10 mL of 0.5% Marcaine injected in a local infusion to the surgical sites followed by 10 mg dexamethasone into the first intermetatarsal space, left foot. The tourniquet was released noting appropriate cap refill time. Dressing included a Betadine-soaked Adaptic, sterile 4 x 4, sterile Kerlix all secured with a Coban wrap. The patient tolerated the anesthesia and procedure well, was transported from the operating room to the recovery area with vital signs stable and vascular status intact to all digits of the left foot. She is to follow up in my office in 10 days' period of time or sooner if necessary. She was given a prescription for Keflex as well as a hydrocodone. Job ID: [id number] DocumentID: [id number] Dictated Date: 02/02/2021 11:41:03 Livestock Buyer Date: 02/02/2021 18:23:08 Dictated By: JULIET CHO DPM
== END 2021-02-02 14:06 | disposition home or self-care (01) ==
LOC: SDC 07:35
PROVIDERS: ATTEND Podiatrist Foot & Ankle Surgery
DX: M20.12 Hallux valgus (acquired), left foot (principal); M20.42 Other hammer toe(s) (acquired), left foot; K21.9 Gastro-esophageal reflux disease without esophagitis; J45.909 Unspecified asthma, uncomplicated; E78.00 Pure hypercholesterolemia, unspecified; E78.5 Hyperlipidemia, unspecified; Z98.890 Other specified postprocedural states; Z79.899 Other long term (current) drug therapy
CPT/HCPCS: 73620; 87081